=== PATIENT | male | born 1970 | race Caucasian/White ===

== ENCOUNTER 2016-12-25 18:10 | Emergency (ER) | payer MEDICARE, MEDICAID ==
[2016-12-25] MEDS ORDERED: OXYCODONE/ACETAMINOPHEN 5/325 MG TABLET ONE (19:00)
--- NOTE | 2016-12-25 19:19 | RAD ---
ANKLE-LEFT 3 VIEW COMPARISON: None HISTORY: Fall with injury to the left ankle. FINDINGS: Views: Left ankle AP, mortise, lateral. Bones: Nondisplaced oblique fracture of the distal left fibula at the distal tibiofibular syndesmosis. Joints: Normal. Soft tissues: Marked lateral soft tissue swelling. IMPRESSION: Nondisplaced oblique fracture of the distal left fibula at the distal tibiofibular syndesmosis.
== END 2016-12-25 19:38 | disposition home or self-care (01) ==
LOC: ED 18:10
DX: S82.832A Other fracture of upper and lower end of left fibula, initial encounter for closed fracture (principal); S93.422A Sprain of deltoid ligament of left ankle, initial encounter; X50.0XXA Overexertion from strenuous movement or load, initial encounter; Y93.01 Activity, walking, marching and hiking; Y92.9 Unspecified place or not applicable
CPT/HCPCS: 73610; 99283 ×2; 29515; A9270